=== PATIENT | female | born 1980 | race Caucasian/White ===

== ENCOUNTER → 2017-02-10 | Outpatient (CLI) | payer OTHER ==
[~2017-02-10] MED LIST: ZITHTAB PO
[2017-02-10 14:36] LABS: BASOPHIL % 0.2 % (0.0-2.0); EOSINOPHIL # 0.2 TH/MM3 (0-0.4); EOSINOPHIL % 1.8 % (0.0-4.0); HEMATOCRIT 38.9 % (35.0-46.0); HEMO FLAGS DIFF FINAL; LYMPH % 17.3 % (9.0-44.0); LYMPHOCYTE # 2.1 TH/MM3 (1.0-4.8); MEAN CELL VOLUME 83.8 FL (80.0-100.0); MEAN CORPUSCULAR HEMOGLOBIN 26.7 PG (27.0-34.0); MEAN CORPUSCULAR HGB CONC 31.9 % (32.0-36.0); NEUT % 74.7 % (16.0-70.0); PLATELET COUNT 281 TH/MM3 (150-450); RED BLOOD COUNT 4.64 MIL/MM3 (4.00-5.30); RED CELL DISTRIBUTION WIDTH 14.9 % (11.6-17.2); WHITE BLOOD COUNT 12.1 TH/MM3 (4.0-11.0)
[2017-02-10 14:38] LABS: BACTERIA, URINE RARE /hpf; BLOOD, URINE SMALL (NEG); COMMENT (UR) CULT NOT INDICATED; CULTURE IF INDICATED CULT NOT INDICATED; GLUCOSE,URINE NEG (NEG); KETONE, URINE NEG (NEG); MUCUS URINE FEW /lpf (OCC); NITRITE,URINE NEG (NEG); PH, URINE 6.5 (5.0-8.5); SQUAMOUS EPITHELIAL CELL URINE 1 /hpf (0-5); URINE COLOR YELLOW (YELLW/STRAW)
[2017-02-10 15:29] LABS: BETA HCG QUANT LESS THAN 1 MIU/ML (0-5)
--- NOTE | 2017-02-11 21:57 | EKG ---
Date Performed: 02/10/2017 Time Performed: 13:23:32 PTAGE: 36 years EKG: Sinus rhythm NORMAL ECG NO PREVIOUS TRACING DOCTOR: Marc Wilkerson Interpretating Date/Time 02/11/2017 21:56:15
== END ==
LOC: CPRE 13:01
PROVIDERS: ATTEND Obstetrics & Gynecology
DX: Z01.810 Encounter for preprocedural cardiovascular examination (principal); Z01.812 Encounter for preprocedural laboratory examination; N92.0 Excessive and frequent menstruation with regular cycle; N94.6 Dysmenorrhea, unspecified
CPT/HCPCS: 36415; 81001; 84702; 85025; 93005

== ENCOUNTER 2017-02-12 10:07 | Observation (INO) | payer OTHER ==
[~2017-02-12] VITALS: Ht 175.3 cm; Wt 128.5 kg
[2017-02-12] MEDS ORDERED: POVIDONE IODINE 5% (ANTISEPSIS KIT) 4 APPLICATIONS EACH NARE PRN (10:45)
[2017-02-12] MEDS ORDERED: INSULIN HUMAN REGULAR 1,000 UNITS/10 ML VIAL SQ PRN (10:45)
[2017-02-12] MEDS ORDERED: ceFAZolin 2 GM PREMIX 50 ML IV SCH (10:45)
[2017-02-12] MEDS ORDERED: CHLORHEXIDINE GLUCONATE 2 % 1 PACK (2 CLOTHS) TOPICAL PRN (10:45)
[2017-02-12] MEDS ORDERED: METOPROLOL TARTRATE 25 MG TAB PO PRN (10:45)
[2017-02-12] MEDS ORDERED: SODIUM CHLORID 0.9% 500 ML IV PRN (10:45)
[2017-02-12] MEDS ORDERED: ACETAMINOPHEN 1000 MG/100 ML 100 ML IV SCH (10:45)
[2017-02-12] MEDS ORDERED: LACTATED RINGER'S 1000 ML IV PRN (10:45)
[2017-02-12] MEDS ORDERED: ZITHTAB PO (11:11)
[2017-02-12] MEDS ORDERED: LIDOCAINE HCL 1% PF 5 ML AMPULE OTHER ONE (12:00)
[2017-02-12] MEDS ORDERED: KETOROLAC TROMETHAMINE 30 MG/ML (IVP) VIAL IV PUSH ONE (12:00)
[2017-02-12] MEDS ORDERED: ROCURONIUM INJ 50 MG/5 ML SYRINGE IV PUSH ONE (12:00)
[2017-02-12] MEDS ORDERED: PROPOFOL 200 MG/20 ML AMP IV ONE (12:00)
[2017-02-12] MEDS ORDERED: NEOSTIGMINE 3 MG/3 ML SYR IV ONE (12:00)
[2017-02-12] MEDS ORDERED: ONDANSETRON HCL 4 MG/2 ML VIAL IV PUSH ONE (12:00)
[2017-02-12] MEDS ORDERED: GLYCOPYRROLATE 1 MG/5 ML SYRINGE IV PUSH ONE (12:00)
[2017-02-12] MEDS ORDERED: SODIUM CHLORIDE 0.9% 20 ML VIAL IV ONE (12:00)
[2017-02-12] MEDS ORDERED: DEXAMETHASONE SOD PHOS 4 MG/ML VIAL IV ONE (12:00)
[2017-02-12] MEDS ORDERED: ROPIVACAINE 0.5% PF INJ 30 ML VIAL ONE (12:39)
[2017-02-12] MEDS ORDERED: ONDANSETRON HCL 4 MG/2 ML VIAL IV PUSH PRN (14:30)
[2017-02-12] MEDS ORDERED: ONDANSETRON ODT 4 MG TAB PO PRN (14:30)
[2017-02-12] MEDS ORDERED: PROMETHAZINE INJ 25 MG/ML VIAL IM PRN (14:30)
[2017-02-12] MEDS ORDERED: diphenhydrAMINE HCL 25 MG CAP PO PRN (14:30)
[2017-02-12] MEDS ORDERED: PROMETHAZINE HCL 25 MG TAB PO PRN (14:30)
[2017-02-12] MEDS ORDERED: HYDROmorphone HCL PF 1 MG/ML VIAL IV PUSH PRN (14:30)
[2017-02-12] MEDS ORDERED: SODIUM CHLORIDE 0.9% FLUSH 5 ML FLUSH FLUSH PRN (14:30)
[2017-02-12] MEDS ORDERED: ZOLPIDEM TARTRATE 5 MG TAB PO PRN (14:30)
[2017-02-12] MEDS: D5-1/2 NS + KCL 20 MEQ INJ 1,000 ML IV SCH ×2 (14:40→23:41)
[2017-02-12] MEDS ORDERED: DO NOT ADM ANY ANTICOAGULANT DRUGS PRN ×2 (14:45→18:15)
[2017-02-12] MEDS ORDERED: *morphine SULFATE 8 MG/ML PERIprocedure ONLY ONE (14:54)
[2017-02-12] MEDS ORDERED: ONDANSETRON INJ 8 MG in DEXTROSE 5% IN WATER INJ 50 ML IV PRN ×2 (15:30)
[2017-02-12 16:00] VITALS: BP 120/75; PULSE 72; RESP 18; TEMP 97; O2SAT 97
[2017-02-12] MEDS ORDERED: KETOROLAC TROMETHAMINE 30 MG/ML (IVP) VIAL IVP SCH (16:00)
--- NOTE | 2017-02-12 16:41 | MP ---
cc: COLE ACEVEDO DATE OF SURGERY 02/12/2017 PREOPERATIVE DIAGNOSIS Menorrhagia, dysmenorrhea. POSTOPERATIVE DIAGNOSIS Menorrhagia, dysmenorrhea. PROCEDURE LASH with bilateral salpingectomy. ANESTHESIA General ET SURGEON Cole Acevedo MD DISULFURIZER TENDER EVELINE Dupont ESTIMATED BLOOD LOSS 50 mL FLUIDS 1500 mL of crystalloid. OBJECTIVE FINDINGS Following induction of adequate general endotracheal anesthesia the patient was prepped and draped supine on the operating table in the usual sterile fashion with bladder being drained by Antunez catheterization. The abdomen was opened through a 3 cm curving infraumbilical incision using a knife to cutdown the skin to the fascia. Fascia opened transversely. Peritoneum opened sharply without incident and the GelPort was placed. Laparoscope was inserted. Under direct vision a 5 port was placed in the left lower quadrant and also a port in the right lower quadrant. Uterus is about 12 weeks size, symmetrically enlarged. Normal tubes. Normal ovaries. Normal cul-de-sacs. Normal liver edge. Working first on the left harmonic scalpel was used to take the left mesosalpinx, left round ligament, left broad ligament, left-sided bladder flap and left uterine vessels and same on the right. Harmonic scalpel now used to amputate the fundus from the cervix. A pouch inserted and used to extract the fundus and tubes intact through the GelPort site. Irrigation now performed. No bleeding was evident. ____ test was done and there was no bleeding. The operative sites were coated with Evacil. Ureters were inspected with good peristalsis bilateral. GelPort now removed and the fascia closed with running locking stitch of 0 Vicryl corner to midline and tied, subcu closed with 3-0 Vicryl and skin with running subcuticular 3-0 Monocryl. The scope was now reinserted through lower port sites and used to inspect the GelPort site which showed good closure, no entrapment of tissue. Pelvis was inspected, there was no bleeding. The scope was now removed, gas allowed to escape, the small ports removed and sutured with 3-0 Monocryl. Dermabond applied. All counts correct. The patient was awakened and taken to recovery room in good condition. MD MARY ELLEN Peraza/ANTONI /2:16 PM /4:15 PM
[2017-02-12 19:00] LABS: HEMATOCRIT 36.9 % (35.0-46.0); REVIEW FLAG FINAL
[2017-02-12] MEDS: ACETAMINOPHEN 1000 MG/100 ML VIAL IV SCH (19:38)
[2017-02-12 19:40] VITALS: BP 114/69; PULSE 68; RESP 18; TEMP 98.5; O2SAT 98
[2017-02-12] MEDS: SODIUM CHLORIDE 0.9% FLUSH 5 ML FLUSH FLUSH SCH (21:00)
[2017-02-12] MEDS: KETOROLAC TROMETHAMINE 30 MG/ML (IVP) VIAL IVP SCH (21:07)
[2017-02-12] MEDS: DOCUSATE SODIUM 100 MG CAP PO SCH (21:08)
[2017-02-13 00:02] VITALS: BP 104/54; PULSE 58; RESP 18; TEMP 97.6; O2SAT 97
[2017-02-13] MEDS: ACETAMINOPHEN 1000 MG/100 ML VIAL IV SCH ×2 (03:08→10:35)
[2017-02-13] MEDS: KETOROLAC TROMETHAMINE 30 MG/ML (IVP) VIAL IVP SCH ×2 (03:09→08:58)
[2017-02-13 05:00] VITALS: BP 103/58; PULSE 66; RESP 18; TEMP 97.6; O2SAT 97
[2017-02-13 05:50] LABS: AUTOMATED NEUTROPHIL # 11.1 TH/MM3 (1.8-7.7); BASOPHIL % 0.1 % (0.0-2.0); HEMATOCRIT 37.2 % (35.0-46.0); HEMO FLAGS DIFF FINAL; LYMPHOCYTE # 1.1 TH/MM3 (1.0-4.8); MEAN CELL VOLUME 83.3 FL (80.0-100.0); MEAN CORPUSCULAR HEMOGLOBIN 27.1 PG (27.0-34.0); MEAN CORPUSCULAR HGB CONC 32.6 % (32.0-36.0); MONO % 3.2 % (0.0-8.0); NEUT % 87.7 % (16.0-70.0); PLATELET COUNT 319 TH/MM3 (150-450); RED BLOOD COUNT 4.47 MIL/MM3 (4.00-5.30); RED CELL DISTRIBUTION WIDTH 14.8 % (11.6-17.2); WHITE BLOOD COUNT 12.7 TH/MM3 (4.0-11.0)
[2017-02-13 06:12] LABS: BICARBONATE 26.2 MEQ/L (21.0-32.0); POTASSIUM 4.4 MEQ/L (3.5-5.1)
--- NOTE | 2017-02-13 07:55 | HHI.DCPOC ---
Discharge Care Plan Report Symptoms to Your Doctor -Temperature above 100.5 degrees -Redness, of incision or excessive or foul smelling drainage -Unusual pain or calf pain -Increased vaginal bleeding -Painful or difficulty urinating -Feelings of extreme sadness or anxiety after 2 weeks Goals to Promote Your Health * To prevent worsening of your condition and complications * To maintain your health at the optimal level Directions to Meet Your Goals Take your medications as prescribed Follow your dietary instruction Follow activity as directed Ensure plenty of rest for recovery Drink fluids for hydration Keep your appointments as scheduled Take your immunizations and boosters as scheduled If your symptoms worsen call your PCP, if no PCP go to Urgent Care Center or Emergency Room Smoking is Dangerous to Your Health. Avoid second hand smoke Call the 24-hour crisis hotline for domestic abuse at Antoine Gonzalez MD Feb 13, 2017 07:55
[2017-02-13] MEDS: SODIUM CHLORIDE 0.9% FLUSH 5 ML FLUSH FLUSH SCH (08:58)
[2017-02-13] MEDS: DOCUSATE SODIUM 100 MG CAP PO SCH (08:58)
--- NOTE | 2017-02-13 09:13 | MH ---
cc: COLE ACEVEDO This is a redictation. DATE OF ADMISSION 02/12/2017 ADMISSION DIAGNOSIS Menorrhagia, dysmenorrhea. HISTORY OF PRESENT ILLNESS The patient is a 36-year-old white female para 2-0-0-2 with a history worsening menorrhagia and dysmenorrhea over the last one year. Her laboratory studies were normal. Pap smear and endometrial biopsy were benign. Ultrasound showed uterine enlargement with a cyst on the left ovary. She is now admitted for surgical evaluation. PAST MEDICAL HISTORY Previous surgery, x2 with the last in 2008. MEDICATIONS Vitamins ALLERGIES None TRANSFUSIONS None SOCIAL HISTORY She is , employed. Alcohol, tobacco and drugs are none. PHYSICAL EXAM This is an overweight white female. HEENT: Exam is normal. CHEST: Clear. HEART: Regular rate. BREASTS: The breasts are symmetrical. ABDOMEN: Benign. PELVIC: Normal external genitalia and BUS. The vagina is normal. The cervix is normal. The uterus was enlarged about 12 weeks size. Adnexa nonpalpable. ASSESSMENT As above. PLAN She is now admitted for laparoscopy with planned LASH procedure, possible BSO. While in office, I explained the procedure, the risks, benefits and complications and different recovery times with this type of incision. The patient would like to proceed. MD MARY ELLEN Peraza/MIKI /8:59 AM /9:07 AM
[2017-02-13 09:17] VITALS: BP 124/80; PULSE 81; RESP 18; TEMP 97.8
== END 2017-02-13 11:11 | disposition home or self-care (01) ==
LOC: HSDC 10:07 → HSDI 14:20 → H1EA 15:43
PROVIDERS: ADMIT Obstetrics & Gynecology; ATTEND Obstetrics & Gynecology
DX: N92.0 Excessive and frequent menstruation with regular cycle (principal); N94.6 Dysmenorrhea, unspecified; N85.2 Hypertrophy of uterus; N83.202 Unspecified ovarian cyst, left side; N85.8 Other specified noninflammatory disorders of uterus
CPT/HCPCS: 00840; 58542; 80048; 85014; 85018; 85025; 88307; 94150; G0378; J0131; J0690; J1100; J1885; J2270; J2405; J2710; J2795; J3010; J3480; J7120